=== PATIENT | male | born 1945 ===

== ENCOUNTER 2022-04-16 08:22 | Day surgery (SDC) | payer OTHER ==
[2022-04-13 10:41] LABS: Absolute Lymphocytes (CBC) 1.4 K/uL (0.7-4.9); Hematocrit 44.5 % (39.6-49.0); Lymphocytes % 19.6 % (15.3-44.8); RBC Red Blood Cell Count 4.72 M/uL (4.33-5.43)
[2022-04-13 10:55] LABS: Potassium 5.2 mmol/L (3.5-5.1)
--- NOTE | 2022-04-13 11:47 | RAD REPORT ---
EXAM DESCRIPTION: RAD - Chest Pa And Lat (2 Views) - 04/13/2022 10:44 am CLINICAL HISTORY: Pre op pending mass removal from hand COMPARISON: Two view chest March 2017 TECHNIQUE: Frontal and lateral views of the chest were obtained. FINDINGS: The lungs are clear of an acute infiltrate or mass. Fibrotic lung changes are present. Rupali phragm is flattened. Costophrenic angle blunting is present bilaterally matching prior imaging. Retro sternal space is increased. Heart size is normal and central vasculature is within normal limits. No pneumothorax identified. No acute bony finding noted. No aortic abnormality. No abnormal widening of the mediastinum. Hilar regions within normal range. IMPRESSION: COPD with no acute cardiopulmonary finding.
[2022-04-16] MEDS ORDERED: BUPIVACAINE 0.5% PF 10 ML VIAL ONE (08:46)
[2022-04-16] MEDS ORDERED: propofoL 200 MG/20 ML VIAL IV ONE (08:47)
[2022-04-16] MEDS ORDERED: FENTANYL CITR 100 MCG/2 ML ONE (08:47)
[2022-04-16] MEDS ORDERED: MIDAZOLAM HCL 2 MG/2 ML INJ ONE (08:48)
[2022-04-16] MEDS ORDERED: LIDOCAINE 2% MPF 5 ML VIAL ONE (08:50)
[2022-04-16] MEDS ORDERED: ONDANSETRON 4 MG/2 ML VIAL ONE (08:50)
[2022-04-16] MEDS ORDERED: BUPIVACAINE 0.5% PF 10 ML VIAL SQ ONE ×2 (08:59→10:20)
[2022-04-16] MEDS ORDERED: NA CHLORIDE 0.9% 1,000 ML ONE (09:04)
[2022-04-16] MEDS ORDERED: CEFAZOLIN SODIUM 1 GM/VIAL ONE (09:04)
[2022-04-16] MEDS ORDERED: EPHEDRINE SULF 50 MG/ML VIAL ONE (09:57)
--- NOTE | 2022-04-16 10:10 | EKG ---
Test Date: 2022-04-13 Test Time: 09:20:25 [place] Inspector: VIDHYA MEASUREMENT RESULTS: Intervals: Rate: 54 LA: 156 QRSD: 84 QT: 404 QTc: 383 [place]: P: 76 LA: 156 QRS: 44 T: 64 INTERPRETIVE STATEMENTS: Sinus bradycardia Otherwise normal ECG No previous ECG available for comparison Electronically Signed On 04-16-22 10:03:13 CDT by Sergio Anna
--- NOTE | 2022-04-16 10:40 | P.OP ---
Date of Service: 04/16/22 Preop diagnosis: Left hand mass Postop diagnosis: Same Procedure performed: Wide excision left hand mass 4 x 2 cm with layered closure and frozen section Surgeon: Juan Antonio Rivero MD Electronic [employer] System Operator: Clifton ELIAS Estimated blood loss: Minimal Specimen: Left hand mass Findings: Benign cysts Anesthesia: General Complications: None Drains: None Fluids and blood products: Nonapplicable Disposition: Recovery room Operative note: Patient brought to the OR and placed in the supine position. General anesthesia begun. Patient prepped and draped in the usual sterile fashion. [place] 0.5% infiltrated locally. 15 blade used to make a 4 x 2 cm incision to include this raised mass on the dorsum of the left hand. Subcutaneous tissue divided and then the entire mass excised and sent to pathology for frozen section. Frozen section revealed a benign cyst. Wound irrigated bleeding controlled with cautery. Flaps created. Then 5-0 chromic used to reapproximate subcutaneous tissue. And 6-0 Prolene used to close skin. Sterile dressing applied. Patient awakened and taken to recovery in good general condition. CC: Dr. Butler's office
[2022-04-16] MEDS ORDERED: HYDROCODONE/APAP 7.5/325 MG TAB PO PRN (10:41)
[2022-04-16 11:55] VITALS: BP 138/66; TEMP 97.2; O2SAT 98
== END 2022-04-16 11:50 | disposition home or self-care (01) ==
LOC: OR 08:22
PROVIDERS: ATTEND Surgery
PROC: 0JBK0ZZ Excision of Left Hand Subcutaneous Tissue and Fascia, Open Approach (ICD-10-PCS; principal; 2022-04-16 09:30)
DX: L72.0 Epidermal cyst (principal); Z20.822 Contact with and (suspected) exposure to COVID-19; E11.9 Type 2 diabetes mellitus without complications
CPT/HCPCS: 93005; 85025; 80048; 36415; 82947 ×2; 88331; 88332; 88304; 71046; 11424; U0003; J2704; J2250; J3010; J7030; J2405; J0690